=== PATIENT | male | born 1960 | race Caucasian/White ===

== ENCOUNTER 2019-12-02 04:05 | Emergency (ER) | payer OTHER ==
[~2019-12-02] VITALS: Ht 172.7 cm; Wt 102.3 kg
[~2019-12-02 04:05] MED LIST: FLUT1DIS3 IH; GUAI600T47 PO; LOSA1TAB25 PO; PRED50TA PO; TAMS0.4C2 PO; ZAFI20TA12 PO
--- NOTE | 2019-12-02 04:38 | PHYS DOC ---
Past Medical History Past Medical History: COPD, Hypertension, Other Additional Past Medical Histor: PROSTATE Past Surgical History: Appendectomy, Other Additional Past Surgical Histo: ELBOW TENDON REPAIR, LEFT WRIST REPAIR Smoking Status: Never Smoker Alcohol Use: None Drug Use: None General Adult EDM: Chief Complaint: FLANK PAIN HPI: HPI: Patient is a 59 year old male who presents with right-sided flank pain. Patient stated that about 1:00 this morning it woke him from sleep. He reports he had been doing well without any pain, fever, chills, cough or hematuria. Patient stated that he does have a history of kidney stones but is been a while since he has had 1. He does complain of nausea without vomiting, no dysuria, pyuria hematuria, no low back pain, no diarrhea, melena hematochezia. He describes the pain as sharp severe and radiating from the flank towards the right groin Review of Systems: Review of Systems: Constitutional: Denies fever or chills. [] Eyes: Denies change in visual acuity. [] HENT: Denies nasal congestion or sore throat. [] Respiratory: Denies cough or shortness of breath. [] Cardiovascular: Denies chest pain or edema. [] GI: See HPI [] : Denies dysuria. [] Musculoskeletal: Denies back pain or joint pain. [] Integument: Denies rash. [] Neurologic: Denies headache, focal weakness or sensory changes. [] Endocrine: Denies polyuria or polydipsia. [] Lymphatic: Denies swollen glands. [] Psychiatric: Denies depression or anxiety. [] Heart Score: Risk Factors: Risk Factors: DM, Current or recent (<one month) smoker, HTN, HLP, family history of CAD, obesity. Risk Scores: Score 0 - 3: 2.5% MACE over next 6 weeks - Discharge Home Score 4 - 6: 20.3% MACE over next 6 weeks - Admit for Clinical Observation Score 7 - 10: 72.7% MACE over next 6 weeks - Early Invasive Strategies Allergies: Allergies: Allergies Coded Allergies Type Severity Reaction Last Updated Verified No Known Drug Allergies 02/02/15 No Physical Exam: PE: Constitutional: Well developed, well nourished, no acute distress, non-toxic appearance. [] HENT: Normocephalic, atraumatic, bilateral external ears normal, oropharynx moist, no oral exudates, nose normal. [] Eyes: PERRLA, EOMI, conjunctiva normal, no discharge. [] Neck: Normal range of motion, no tenderness, supple, no stridor. [] Cardiovascular:Heart rate regular rhythm, no murmur [] Lungs & Thorax: Bilateral breath sounds clear to auscultation [] Abdomen: Bowel sounds normal, soft, tenderness in the right flank, no masses, no pulsatile masses, no guarding, no rebound, negative Cai sign. [] Skin: Warm, dry, no erythema, no rash. [] Back: No tenderness, no CVA tenderness. [] Extremities: No tenderness, no cyanosis, no clubbing, ROM intact, no edema. [] Neurologic: Alert and oriented X 3, normal motor function, normal sensory function, no focal deficits noted. [] Psychologic: Affect normal, judgement normal, mood normal. [] EKG: EKG: [] Radiology/Procedures: Radiology/Procedures: [] Course & Med Decision Making: Course & Med Decision Making Pertinent Labs and Imaging studies reviewed. (See chart for details) 0532-patient was seen and reevaluated. Patient is now almost pain-free. I discussed results of his testing. No evidence for for infection is identified. Patient's creatinine is slightly elevated compared to what it was 5 years ago. Given his history of hypertension I think this would reflect progression of his underlying disease. I discussed with him the reasons to return, treatment plan and need for follow-up. [] Dragon Disclaimer: Dragon Disclaimer: This electronic medical record was generated, in whole or in part, using a voice recognition dictation system. Departure Departure Impression: Primary Impression: Ureteral colic Additional Impressions: Nephrolithiasis Right flank pain Disposition: HOME, SELF-CARE Referrals: MICHAEL FREY MD (PCP) Patient Instructions: Kidney Stones Additional Instructions: Please follow-up with your primary care physician for referral to urology, please strain your urine and try to catch the stone. Scripts Oxycodone/Apap 7.5-325 (PERCOCET 7.5-325 MG TABLET ) 1 Each Tablet 1 TAB PO QIDPRN PRN for PAIN MDD 4 Tablet(s) for 5 Days, #20 TAB 0 Refills Prov: SAVANNAH COURTNEY MD 12/02/19 Ketorolac Tromethamine (KETOROLAC TROMETHAMINE) 10 Mg Tablet 1 TAB PO PRN Q6HRS, #12 TAB Please take with food Prov: SAVANNAH COURTNEY MD 12/02/19 Justicifation of Admission Dx: Justifications for Admission: Justification of Admission Dx: N/A SAVANNAH COURTNEY MD Dec 02, 2019 04:37
[2019-12-02] MEDS ORDERED: KETOROLAC 30 MG/ML VIAL. ONE (04:41)
[2019-12-02] MEDS ORDERED: KETOROLAC 15 MG/ML VIAL. IVP ONE (04:45)
[2019-12-02] MEDS ORDERED: KETOROLAC 30 MG/ML VIAL. IVP ONE (04:45)
[2019-12-02 04:51] LABS: BASO # 0.1 x10^3/uL (0.0-0.2); BASO % 1 % (0-3); EOS # 0.2 x10^3/uL (0.0-0.7); EOS % 2 % (0-3); HEMATOCRIT 47.1 % (39.0-53.0); HEMOGLOBIN 15.8 g/dL (13.0-17.5); LYMPH # 2.1 x10^3/uL (1.0-4.8); LYMPH % 24 % (24-48); MEAN CORPUSCULAR HEMOGLOBIN 29 pg (25-35); MEAN CORPUSCULAR HGB CONC 34 g/dL (31-37); MEAN CORPUSCULAR VOLUME 87 fL (79-100); MONO # 0.6 x10^3/uL (0.0-1.1); MONO % 7 % (0-9); NEUT # 5.7 x10^3/uL (1.8-7.7); NEUT % 66 % (31-73); PLATELET COUNT 292 x10^3/uL (140-400); RED BLOOD COUNT 5.41 x10^6/uL (4.30-5.70); RED CELL DISTRIBUTION WIDTH 13.1 % (11.5-14.5); WHITE BLOOD COUNT 8.6 x10^3/uL (4.0-11.0)
[2019-12-02 04:58] LABS: BILIRUBIN,URINE SMALL (NEG); CLARITY,URINE TURBID; COLOR,URINE AMBER; NITRITE,URINE NEGATIVE (NEG); PROTEIN,URINE 30 mg/dL (NEG-TRACE); UROBILINOGEN,URINE 0.2 mg/dL (0.2 mg/dL)
[2019-12-02 05:00] LABS: CALCIUM 8.1 mg/dL (8.5-10.1); CREATININE 1.5 mg/dL (0.7-1.3); GFR 47.9; POTASSIUM 3.9 mmol/L (3.5-5.1)
[2019-12-02] MEDS ORDERED: IV NORMAL SALINE 500ML BAG 500 ML IV ONE (05:00)
[2019-12-02 05:08] LABS: BACTERIA,URINE 0 /HPF (0-FEW); RBC,URINE OCC /HPF (0-2); WBC,URINE 0 /HPF (0-4)
[2019-12-02 05:09] LABS: AMORPHOUS SEDIMENT,UR PRESENT /HPF
--- NOTE | 2019-12-02 05:16 | RAD ---
CT abdomen and pelvis without contrast PQRS statement: CT scans at this facility use dose reduction including either automated exposure control, iterative reconstructions, and /or weight based radiation dosing via mA and kV modification when appropriate to reduce radiation dose to as low as reasonably achievable. HISTORY: Right flank pain. Abdomen findings: Calcified granuloma right middle lobe. Bronchial wall thickening lung bases. Right lower lobe demonstrates a 10 mm nodular density associated discoid atelectasis image 31. Liver, gallbladder, spleen, pancreas, adrenal glands unremarkable. Prominent bilateral periventricular stranding. Bilateral nephrolithiasis. There is moderate renal hydronephrosis renal pelvis diameter 1 cm and distention of the ureter with edema associated with a 2 mm distal ureteral obstructing calculus 2 cm above the bladder. Appendectomy. No obstruction or inflammatory changes in GI tract. No abdominal fluid. Pelvis findings: No bladder calculi. Prostate, rectum and bones are unremarkable. IMPRESSION: 1. Mild right renal hydronephrosis associated with a distal ureteral 2 mm obstructing calculus. 2. Bilateral nephrolithiasis. 3. Extensive bilateral perinephric edema may the sequela of renal insufficiency. 4. Appendectomy. 5. 9 mm somewhat linear right lower lobe nodular density associated with discoid atelectasis. Consider follow-up CT imaging in 3 months to document that this resolves. 6. Mild bronchial wall thickening at the lung bases may indicate bronchitis. Electronically signed by: Nino Sen MD (12/02/2019 5:13 AM) [facility]
[2019-12-02] MEDS ORDERED: KETO10TA PO (05:31)
[2019-12-02] MEDS ORDERED: OXYC1TAB19 PO (05:31)
[2019-12-02 05:42] VITALS: BP 163/83
== END 2019-12-02 05:48 | disposition home or self-care (01) ==
LOC: ER 04:05
DX: N20.0 Calculus of kidney (principal); N23 Unspecified renal colic; R11.0 Nausea; J44.9 Chronic obstructive pulmonary disease, unspecified; I10 Essential (primary) hypertension; Z90.89 Acquired absence of other organs; Z98.890 Other specified postprocedural states
CPT/HCPCS: 36415; 74176; 80048; 81001; 85025; 96361; 96374; 99284; J1885; J7040

== ENCOUNTER → 2020-04-23 | Outpatient (CLI) | payer OTHER ==
[~2020-04-23] MED LIST changes: +HYDR-2761 PO; +KETO10TA PO; +ONDA4TAB12 PO; +OXYC1TAB19 PO; +TAMS0.4C97 PO
[2020-04-23 14:49] LABS: BASO # 0.1 x10^3/uL (0.0-0.2); BASO % 1 % (0-3); EOS # 0.3 x10^3/uL (0.0-0.7); EOS % 5 % (0-3); HEMATOCRIT 39.4 % (39.0-53.0); HEMOGLOBIN 13.3 g/dL (13.0-17.5); LYMPH # 1.3 x10^3/uL (1.0-4.8); LYMPH % 19 % (24-48); MEAN CORPUSCULAR HEMOGLOBIN 30 pg (25-35); MEAN CORPUSCULAR HGB CONC 34 g/dL (31-37); MEAN CORPUSCULAR VOLUME 88 fL (79-100); MONO # 0.8 x10^3/uL (0.0-1.1); MONO % 12 % (0-9); NEUT # 4.6 x10^3/uL (1.8-7.7); NEUT % 64 % (31-73); PLATELET COUNT 253 x10^3/uL (140-400); RED BLOOD COUNT 4.48 x10^6/uL (4.30-5.70); RED CELL DISTRIBUTION WIDTH 14.6 % (11.5-14.5); WHITE BLOOD COUNT 7.2 x10^3/uL (4.0-11.0)
[2020-04-23 15:19] LABS: ALBUMIN 3.5 g/dL (3.4-5.0); ALBUMIN/GLOBULIN RATIO 1.2 (1.0-1.7); CREATININE 1.2 mg/dL (0.7-1.3); GFR 61.8; TOTAL BILIRUBIN 0.5 mg/dL (0.2-1.0); TOTAL PROTEIN 6.5 g/dL (6.4-8.2)
[2020-04-23 15:27] LABS: POTASSIUM 2.9 mmol/L (3.5-5.1)
== END ==
LOC: ONCLAB 14:40
PROVIDERS: ATTEND Internal Medicine Hematology & Oncology
DX: C83.31 Diffuse large B-cell lymphoma, lymph nodes of head, face, and neck (principal)
CPT/HCPCS: 36415; 80053; 83615; 85025

== ENCOUNTER 2020-07-20 09:12 | Emergency (ER) | payer OTHER ==
[~2020-07-20] VITALS: Ht 172.7 cm; Wt 100.0 kg
[~2020-07-20 09:12] MED LIST changes: -HYDR-2761 PO; -ONDA4TAB12 PO; -TAMS0.4C97 PO
--- NOTE | 2020-07-20 09:33 | PHYS DOC ---
Past Medical History Past Medical History: COPD, Hypertension, Kidney Stone, Other Additional Past Medical Histor: PROSTATE Past Surgical History: Appendectomy, Other Additional Past Surgical Histo: ELBOW TENDON REPAIR, LEFT WRIST REPAIR Smoking Status: Never Smoker Alcohol Use: None Drug Use: None General Adult EDM: Chief Complaint: FLANK PAIN HPI: HPI: This patient is a 60 year old male with a history of hypertension and COPD that presents with 1 day of flank pain. He says that the pain started yesterday morning and at that time it was 5 out of 10. However, by 10 PM last night the pain had disappeared. This morning at 8 AM the patient started experiencing pain again and it was worse this time. At onset, the patient was taking his child to school. He was not exerting himself at the time. He rates the pain as 6 out of 10, constant, sharp, and states that Tylenol does not help the pain. T he patient reports no provoking components. Furthermore, the patient states 6 months ago he had a kidney stone and his current symptoms feel similar to that experience. Ricardo denies any chest pain, shortness of breath, fever, chills, and dizziness. He does not follow with an urologist. Review of Systems: Review of Systems: Constitutional: Denies fever or chills Eyes: Denies redness or eye pain HENT: Denies nasal congestion or sore throat Respiratory: Denies cough or shortness of breath Cardiovascular: Denies chest pain or palpitations GI: Denies nausea, or vomiting; reports right-sided abdominal pain and flank pain. : Denies dysuria or hematuria; reports difficult urination Musculoskeletal: Denies back pain or joint pain Integument: Denies rash or skin lesions Neurologic: Denies headache, focal weakness or sensory changes Complete systems were reviewed and found to be within normal limits, except as documented in this note. Heart Score: C/O Chest Pain: N/A Allergies: Allergies: Allergies Coded Allergies Type Severity Reaction Last Updated Verified No Known Drug Allergies 02/02/15 No Physical Exam: PE: Constitutional: Well developed, well nourished, no acute distress, non-toxic appearance HENT: Normocephalic, atraumatic Eyes: PERRL, EOMI, conjunctiva normal, no discharge Neck: Normal range of motion, no tenderness, supple Lungs & Thorax: No respiratory distress, equal chest rise and fall Abdomen: Rounded abdomen, mild tenderness with deep palpation of suprapubic region. Skin: Warm, dry, no erythema, no rash Back: No midline tenderness; right CVA tenderness with River's punch Extremities: No tenderness, ROM intact, no edema Neurologic: Alert and oriented X 3, normal motor function, normal sensory function, no focal deficits noted Psychologic: Affect normal, judgment normal Current Patient Data: Vital Signs: Vital Signs Date Time Temp Pulse Resp B/P (MAP) Pulse Ox O2 Delivery O2 Flow Rate FiO2 07/20/20 09:20 98.2 100 18 200/99 (132) 97 Room Air 98.2 EKG: EKG: [] Radiology/Procedures: Radiology/Procedures: PROCEDURE: CT ABDOMEN PELVIS WO CONTRAST CT scan abdomen and pelvis without contrast 07/20/2020 CLINICAL HISTORY: Right flank pain. TECHNIQUE: Unenhanced, contiguous, 2 mm axial sections were obtained through the abdomen and pelvis. One or more of the following individualized dose reduction techniques were utilized for this study: 1. Automated exposure control. 2. Adjustment of the mA and/or kV according to patient size. 3. Use of iterative reconstruction technique. FINDINGS: Comparison study is dated 12/02/2019. Images through the lung bases demonstrate linear bands of subsegmental atelectasis involving the right lower lobe. The liver, spleen, pancreas and right adrenal gland are within normal limits. A oval-shaped low-attenuation lesion is seen involving the inferior aspect of the left adrenal gland. This measures 1.6 cm in size. This is consistent with an adrenal adenoma. It is unchanged. Nonobstructing left renal calculi are seen which measure 2 to 3 mm in size. Ther e is no evidence of obstruction of the left collecting system. Fullness of the right intrarenal collecting system is seen. The right ureter is dilated throughout its course. Within the distal right ureter at the level of the right UVJ a 4 mm distal right ureteral calculus is seen. This is causing mild obstruction of the right collecting system. Atherosclerotic calcification of the abdominal aorta is seen. The abdominal aorta tapers normally. The gallbladder is contracted. No free fluid or free air is within abdomen. There is no evidence of bowel obstruction. Images through the pelvis demonstrated the urinary bladder to be contracted. Calcifications are seen within the prostate gland. No free fluid is seen. Minimal S-shaped curvature of the thoracolumbar spine is noted. Degenerative changes are seen involving the lower thoracic and throughout the lumbar spine along with both hips. IMPRESSION: 4 mm distal right ureteral calculus is seen at the right UVJ which is causing mild obstruction of the right collecting system. Electronically signed by: Carlitos Pina MD (07/20/2020 10:06 AM) [id number] Course & Med Decision Making: Course & Med Decision Making Ricardo is a 60-year-old male who presents with roughly 1 day of right flank pain. He has a history of 1 kidney stone, hypertension, and COPD. The patient describes his pain as 6 out of 10, sharp, and stabbing. Given his history of kidney stone, and his presentation, a CT scan was done to determine if he had another stone. Imaging showed that he had a 4.9mm calcification at his UVJ. As this is under 5mm, the patient was prescribed Flomax, and is expected to be able to pass the stone on his own. His pain was controlled during his visit in the emergency room, and his vital signs have been stable throughout his visit. Patient was instructed to return to the emergency room if he continued to experience severe pain, or increasing pain, or any signs of infection such as fever or chills. Furthermore, he was instructed to return to the emergency room if he became unable to urinate. Patient stable for discharge with outpatient follow-up with PCP. Discussed findings and plan with patient, who acknowledges understanding and agreement. Dragon Disclaimer: Dragon Disclaimer: This electronic medical record was generated, in whole or in part, using a voice recognition dictation system. Departure Departure Impression: Primary Impression: Kidney stone Disposition: 01 DC HOME SELF CARE/HOMELESS Condition: STABLE Referrals: MICHAEL FREY MD (PCP) Patient Instructions: Diet for Kidney Stones, Kidney Stones, [id number] Additional Instructions: Increase fluid hydration. May also take over the counter Ibuprofen for pain or discomfort. Scripts Hydrocodone Bit/Acetaminophen (HYDROCODONE-APAP 5-325 ) 1 Tab Tablet 0.5-1 TAB PO PRN Q6HRS PRN for PAIN, #10 TAB 0 Refills Prov: CALIXTO LOMELI DO 07/20/20 Tamsulosin Hcl (FLOMAX) 0.4 Mg Cap.er.24h 1 CAP PO DAILY for 7 Days, #7 CAP Prov: CALIXTO LOMELI DO 07/20/20 Ondansetron (ONDANSETRON ODT) 4 Mg Tab.rapdis 1 TAB PO PRN Q6-8HRS PRN for NAUSEA, #16 TAB Prov: CALIXTO LOMELI DO 07/20/20 CALIXTO LOMELI DO Jul 20, 2020 09:33
[2020-07-20] MEDS ORDERED: IV NORMAL SALINE 1000ML BAG 1,000 ML IV ONE (09:45)
[2020-07-20] MEDS ORDERED: KETOROLAC 15 MG/ML VIAL. IVP ONE (09:45)
[2020-07-20] MEDS ORDERED: METOCLOPRAMIDE HCL 10 MG/2 ML VIAL. IVP ONE (09:45)
[2020-07-20] MEDS ORDERED: fentaNYL PF VIAL 100 MCG/2 ML VIAL IV ONE (09:45)
[2020-07-20] MEDS ORDERED: IV NORMAL SALINE 1000ML BAG 1,000 ML IV SCH (09:45)
[2020-07-20 09:47] LABS: BASO # 0.1 x10^3/uL (0.0-0.2); BASO % 1 % (0-3); EOS # 0.2 x10^3/uL (0.0-0.7); EOS % 2 % (0-3); HEMATOCRIT 46.8 % (39.0-53.0); HEMOGLOBIN 15.8 g/dL (13.0-17.5); LYMPH # 1.5 x10^3/uL (1.0-4.8); LYMPH % 18 % (24-48); MEAN CORPUSCULAR HEMOGLOBIN 29 pg (25-35); MEAN CORPUSCULAR HGB CONC 34 g/dL (31-37); MEAN CORPUSCULAR VOLUME 86 fL (79-100); MONO # 0.7 x10^3/uL (0.0-1.1); MONO % 9 % (0-9); NEUT # 5.7 x10^3/uL (1.8-7.7); NEUT % 70 % (31-73); PLATELET COUNT 288 x10^3/uL (140-400); RED BLOOD COUNT 5.43 x10^6/uL (4.30-5.70); RED CELL DISTRIBUTION WIDTH 13.1 % (11.5-14.5); WHITE BLOOD COUNT 8.2 x10^3/uL (4.0-11.0)
[2020-07-20 09:49] LABS: BILIRUBIN,URINE NEGATIVE (NEG); CLARITY,URINE CLEAR; COLOR,URINE YELLOW; NITRITE,URINE NEGATIVE (NEG); PROTEIN,URINE NEGATIVE (NEG-TRACE); UROBILINOGEN,URINE 0.2 mg/dL (0.2 mg/dL)
[2020-07-20 09:59] LABS: BACTERIA,URINE 0 /HPF (0-FEW); RBC,URINE 0 /HPF (0-2); WBC,URINE 0 /HPF (0-4)
[2020-07-20 10:04] LABS: CALCIUM 8.6 mg/dL (8.5-10.1); CREATININE 1.3 mg/dL (0.7-1.3); GFR 56.3; POTASSIUM 3.5 mmol/L (3.5-5.1)
--- NOTE | 2020-07-20 10:09 | RAD ---
CT scan abdomen and pelvis without contrast 07/20/2020 CLINICAL HISTORY: Right flank pain. TECHNIQUE: Unenhanced, contiguous, 2 mm axial sections were obtained through the abdomen and pelvis. One or more of the following individualized dose reduction techniques were utilized for this study: 1. Automated exposure control. 2. Adjustment of the mA and/or kV according to patient size. 3. Use of iterative reconstruction technique. FINDINGS: Comparison study is dated 12/02/2019. Images through the lung bases demonstrate linear bands of subsegmental atelectasis involving the righ t lower lobe. The liver, spleen, pancreas and right adrenal gland are within normal limits. A oval-shaped low-atten uation lesion is seen involving the inferior aspect of the left adrenal gland. This measures 1.6 cm i n size. This is consistent with an adrenal adenoma. It is unchanged. Nonobstructing left renal calculi are seen which measure 2 to 3 mm in size. There is no evidence of o bstruction of the left collecting system. Fullness of the right intrarenal collecting system is seen. The right ureter is dilated throughout its course. Within the distal right ureter at the level of th e right UVJ a 4 mm distal right ureteral calculus is seen. This is causing mild obstruction of the ri ght collecting system. Atherosclerotic calcification of the abdominal aorta is seen. The abdominal aorta tapers normally. Th e gallbladder is contracted. No free fluid or free air is within abdomen. There is no evidence of bow el obstruction. Images through the pelvis demonstrated the urinary bladder to be contracted. Calcifications are seen within the prostate gland. No free fluid is seen. Minimal S-shaped curvature of the thoracolumbar spi ne is noted. Degenerative changes are seen involving the lower thoracic and throughout the lumbar spi ne along with both hips. IMPRESSION: 4 mm distal right ureteral calculus is seen at the right UVJ which is causing mild obstru ction of the right collecting system. Electronically signed by: Carlitos Pina MD (07/20/2020 10:06 AM) [id number]
[2020-07-20 10:10] LABS: ALBUMIN 3.7 g/dL (3.4-5.0); ALBUMIN/GLOBULIN RATIO 1.1 (1.0-1.7); TOTAL BILIRUBIN 0.5 mg/dL (0.2-1.0)
[2020-07-20] MEDS ORDERED: TAMSULOSIN 0.4 MG CAP.ER.24H. PO ONE (10:45)
[2020-07-20] MEDS ORDERED: TAMS0.4C97 PO (11:06)
[2020-07-20] MEDS ORDERED: HYDR-2761 PO (11:06)
[2020-07-20] MEDS ORDERED: ONDA4TAB12 PO (11:06)
[2020-07-20 12:00] VITALS: BP 122/66
== END 2020-07-20 12:05 | disposition home or self-care (01) ==
LOC: ER 09:12
DX: N20.0 Calculus of kidney (principal); R10.9 Unspecified abdominal pain; J44.9 Chronic obstructive pulmonary disease, unspecified; I10 Essential (primary) hypertension; Z87.442 Personal history of urinary calculi; Z90.89 Acquired absence of other organs; Z98.890 Other specified postprocedural states
CPT/HCPCS: 36415; 74176; 80053; 81001; 83690; 83735; 85025; 96361; 96374; 96375; 99284; J1885; J2765; J3010; J7030

== ENCOUNTER → 2020-07-23 | Outpatient (CLI) | payer OTHER ==
[2020-07-20 12:00] VITALS: BP 122/66
[~2020-07-23] MED LIST changes: +HYDR-2761 PO; +ONDA4TAB12 PO; +TAMS0.4C97 PO
[2020-07-23 09:29] LABS: BASO # 0.1 x10^3/uL (0.0-0.2); BASO % 1 % (0-3); EOS # 0.2 x10^3/uL (0.0-0.7); EOS % 3 % (0-3); HEMATOCRIT 44.3 % (39.0-53.0); LYMPH # 1.3 x10^3/uL (1.0-4.8); LYMPH % 20 % (24-48); MEAN CORPUSCULAR HEMOGLOBIN 29 pg (25-35); MEAN CORPUSCULAR HGB CONC 34 g/dL (31-37); MEAN CORPUSCULAR VOLUME 86 fL (79-100); MONO # 0.5 x10^3/uL (0.0-1.1); MONO % 7 % (0-9); NEUT # 4.6 x10^3/uL (1.8-7.7); NEUT % 70 % (31-73); PLATELET COUNT 272 x10^3/uL (140-400); RED BLOOD COUNT 5.18 x10^6/uL (4.30-5.70); RED CELL DISTRIBUTION WIDTH 12.9 % (11.5-14.5); WHITE BLOOD COUNT 6.6 x10^3/uL (4.0-11.0)
[2020-07-23 09:45] LABS: CALCIUM 8.7 mg/dL (8.5-10.1); CREATININE 1.1 mg/dL (0.7-1.3); GFR 68.3; POTASSIUM 3.4 mmol/L (3.5-5.1)
[2020-07-23 09:51] LABS: ALBUMIN 3.6 g/dL (3.4-5.0); ALBUMIN/GLOBULIN RATIO 1.1 (1.0-1.7); TOTAL BILIRUBIN 0.6 mg/dL (0.2-1.0); TOTAL PROTEIN 6.8 g/dL (6.4-8.2)
== END ==
LOC: ONCLAB 09:01
PROVIDERS: ATTEND Internal Medicine Hematology & Oncology
DX: C83.31 Diffuse large B-cell lymphoma, lymph nodes of head, face, and neck (principal)
CPT/HCPCS: 36415; 80053; 83615; 85025

== ENCOUNTER → 2020-10-11 | Outpatient (CLI) | payer OTHER ==
[2020-10-11 15:04] LABS: BASO # 0.1 x10^3/uL (0.0-0.2); BASO % 1 % (0-3); EOS # 0.3 x10^3/uL (0.0-0.7); EOS % 3 % (0-3); HEMATOCRIT 46.2 % (39.0-53.0); HEMOGLOBIN 15.4 g/dL (13.0-17.5); LYMPH # 1.7 x10^3/uL (1.0-4.8); LYMPH % 20 % (24-48); MEAN CORPUSCULAR HEMOGLOBIN 30 pg (25-35); MEAN CORPUSCULAR HGB CONC 33 g/dL (31-37); MEAN CORPUSCULAR VOLUME 89 fL (79-100); MONO # 0.7 x10^3/uL (0.0-1.1); MONO % 8 % (0-9); NEUT # 5.9 x10^3/uL (1.8-7.7); NEUT % 68 % (31-73); PLATELET COUNT 318 x10^3/uL (140-400); RED CELL DISTRIBUTION WIDTH 13.5 % (11.5-14.5); WHITE BLOOD COUNT 8.7 x10^3/uL (4.0-11.0)
[2020-10-11 15:20] LABS: CALCIUM 8.8 mg/dL (8.5-10.1); CREATININE 1.3 mg/dL (0.7-1.3); GFR 56.3; POTASSIUM 3.6 mmol/L (3.5-5.1)
[2020-10-11 15:26] LABS: ALBUMIN 4.1 g/dL (3.4-5.0); ALBUMIN/GLOBULIN RATIO 1.5 (1.0-1.7); TOTAL BILIRUBIN 0.4 mg/dL (0.2-1.0); TOTAL PROTEIN 6.9 g/dL (6.4-8.2)
== END ==
LOC: ONCLAB 14:22
PROVIDERS: ATTEND Internal Medicine Hematology & Oncology
DX: C83.31 Diffuse large B-cell lymphoma, lymph nodes of head, face, and neck (principal)
CPT/HCPCS: 36415; 80053; 83615; 85025

== ENCOUNTER 2020-12-09 06:49 | Emergency (ER) | payer OTHER ==
[~2020-12-09] VITALS: Ht 172.7 cm; Wt 102.3 kg
[2020-12-09] MEDS ORDERED: MORPHINE SULFATE 10 MG/ML VIAL. IV ONE ×2 (07:30→08:30)
[2020-12-09] MEDS ORDERED: IV NORMAL SALINE 1000ML BAG 1,000 ML IV ONE (07:30)
--- NOTE | 2020-12-09 07:30 | PHYS DOC ---
Past Medical History Past Medical History: COPD, Hypertension, Kidney Stone, Other Additional Past Medical Histor: PRE-DM Past Surgical History: Appendectomy Additional Past Surgical Histo: REMOVAL OF LYMPHOMA Smoking Status: Never Smoker Alcohol Use: None Drug Use: None General Adult EDM: Chief Complaint: FLANK PAIN HPI: HPI: 60-year-old male with a history of nephrolithiasis presents to the emergency department complaining of left-sided flank pain that started this morning, sharp, radiating down his left side. He also states that he is having difficulty with urination this morning. He reports his symptoms are very similar to a previous kidney stone that he had in the past on the right side. He has never had symptoms in the left side before. The patient denies nausea, vomiting, fever, chills, chest pain, shortness of breath,cough, recent trauma, or any other complaints. Review of Systems: Review of Systems: Constitutional: Denies fever or chills. Eyes: Denies change in vision, pain. HENT: Denies congestion or sore throat. Respiratory: Denies cough or shortness of breath. Cardiovascular: Denies chest pain or edema. GI: Denies abdominal pain, nausea. Admits to left-sided flank pain : Has difficulty with urination, denies hematuria. Musculoskeletal: Denies extremity pain, or trauma. Skin: Denies rash, skin change. Neurologic: Denies headache, focal weakness. Psychiatric: Denies depression or anxiety. All other systems reviewed as negative except for what was mentioned in the HPI. Heart Score: C/O Chest Pain: No Allergies: Allergies: Allergies Coded Allergies Type Severity Reaction Last Updated Verified No Known Drug Allergies 02/02/15 No Physical Exam: PE: Constitutional: Mild distress secondary to pain, non-toxic appearance. HENT: Atraumatic, bilateral external ears normal, nose normal. Eyes: PERRLA, EOMI, conjunctiva normal, no discharge. Neck: Normal range of motion, supple, no stridor. Cardiovascular: Heart rate regular rhythm. 2+ radial pulses Lungs & Thorax: No respiratory distress, symmetrical expansion. Abdomen: Soft, no tenderness left-sided CVA tenderness Skin: Warm, dry. Extremities: No tenderness, no cyanosis, ROM intact, no edema. Neurologic: Alert and oriented X 3, normal motor function, normal sensory function, no focal deficits noted. Non ataxic gait. GCS 15. Psychologic: Affect normal, judgment normal, mood normal. Current Patient Data: Labs: Laboratory Tests Test 12/09/20 07:26 White Blood Count 9.0 x10^3/uL (4.0-11.0) Red Blood Count 5.33 x10^6/uL (4.30-5.70) Hemoglobin 15.8 g/dL (13.0-17.5) Hematocrit 46.5 % (39.0-53.0) Mean Corpuscular Volume 87 fL (79-100) Mean Corpuscular Hemoglobin 30 pg (25-35) Mean Corpuscular Hemoglobin Concent 34 g/dL (31-37) Red Cell Distribution Width 13.0 % (11.5-14.5) Platelet Count 274 x10^3/uL (140-400) Neutrophils (%) (Auto) 69 % (31-73) Lymphocytes (%) (Auto) 20 % (24-48) Monocytes (%) (Auto) 7 % (0-9) Eosinophils (%) (Auto) 3 % (0-3) Basophils (%) (Auto) 1 % (0-3) Neutrophils # (Auto) 6.2 x10^3/uL (1.8-7.7) Lymphocytes # (Auto) 1.8 x10^3/uL (1.0-4.8) Monocytes # (Auto) 0.6 x10^3/uL (0.0-1.1) Eosinophils # (Auto) 0.3 x10^3/uL (0.0-0.7) Basophils # (Auto) 0.1 x10^3/uL (0.0-0.2) Urine Collection Type Unknown Urine Color Yellow Urine Clarity Clear Urine pH 5.5 (<5.0-8.0) Urine Specific [place] 1.025 (1.000-1.030) Urine Protein Negative mg/dL (NEG-TRACE) Urine Glucose (UA) Negative mg/dL (NEG) Urine Ketones (Stick) Negative mg/dL (NEG) Urine Blood Large (NEG) Urine Nitrite Negative (NEG) Urine Bilirubin Small (NEG) Urine Urobilinogen Dipstick 1.0 mg/dL (0.2 mg/dL) Urine Leukocyte Esterase Negative (NEG) Urine RBC 6-10 /HPF (0-2) Urine WBC Occ /HPF (0-4) Urine Squamous Epithelial Cells Occ /LPF Urine Bacteria Few /HPF (0-FEW) Urine Mucus Marked /LPF Sodium Level 140 mmol/L (136-145) Potassium Level 3.9 mmol/L (3.5-5.1) Chloride Level 103 mmol/L (98-107) Carbon Dioxide Level 29 mmol/L (21-32) Anion Gap 8 (6-14) Blood Urea Nitrogen 20 mg/dL (8-26) Creatinine 1.5 mg/dL (0.7-1.3) Estimated GFR (Cockcroft-Gault) 47.7 Glucose Level 145 mg/dL (70-99) Calcium Level 8.8 mg/dL (8.5-10.1) Vital Signs: Vital Signs Date Time Temp Pulse Resp B/P (MAP) Pulse Ox O2 Delivery O2 Flow Rate FiO2 12/09/20 07:05 98.3 103 20 188/116 95 Room Air 98.3 Radiology/Procedures: Radiology/Procedures: XR CHEST 1V CLINICAL INDICATIONS: left flank pain COMPARISON: February 02, 2015. Findings: Calcified granuloma medial right lung base is again evident. No acute lung infiltrate or pleural effusion or pulmonary edema or lung mass or pneumothorax is seen. The heart size, pulmonary vasculature, mediastinum and both abrahan are unremarkable. IMPRESSION: No acute radiographic abnormality is seen. Electronically signed by: Tucker Zhao MD (12/09/2020 8:12 AM) Exam: CT abdomen/pelvis without intravenous contrast Indication: Left flank pain starting this morning, history of kidney stones Comparison: CT abdomen pelvis 07/20/2020 Technique: Helical CT imaging performed of the abdomen and pelvis without the use of intravenous contrast. Sagittal and coronal reformats were obtained. One or more of the following individualized dose reduction techniques were utilized for this examination: 1. Automated exposure control 2. Adjustment of the mA and/or kV according to patient size 3. Use of iterative reconstruction technique. Findings: Inherently limited evaluation without intravenous contrast. Lower chest: 9 mm nodular bandlike opacity in the right lung base is unchanged from 2020 and likely atelectasis. The heart is normal size. Liver: The liver is mildly enlarged measuring 20 cm in length and diffusely low in attenuation. Gallbladder/Biliary Tree: Normal. Pancreas: Normal. Spleen: Normal. Adrenal Glands: Normal. Kidneys/Ureters/Bladder: Right ureterolithiasis and hydronephrosis has resolved. There is a new 3 mm calculus in the distal left ureter near the UVJ resulting in mild left hydronephrosis. Additional 2 mm calculus in the mid left kidney. Bladder is decompressed. Reproductive Organs: Prostate gland is unremarkable. Stomach, small bowel, and colon: Stomach, small bowel and colon are normal. There are surgical changes of appendectomy. Vasculature: Abdominal aorta is normal in caliber with mild scattered calcifications. Lymph Nodes: No lymphadenopathy. Peritoneum and retroperitoneum: No free fluid or free air. Bones: No acute osseous abnormality. Mild degenerative disc disease in the lumbar spine. Impression: 1. Mild left hydronephrosis due to a 3 mm calculus in the distal left ureter. 2. Interval resolution of right ureterolithiasis and hydronephrosis. 3. Left nephrolithiasis. 4. Mild hepatomegaly and hepatic steatosis. Electronically signed by: Deborah Martinez MD (12/09/2020 7:51 AM) Course & Med Decision Making: Course & Med Decision Making CT scan shows hydronephrosis with 3 mm stone. He was given morphine x2 in the emergency department with good pain relief. He states that he feels comfortable to go home. We will treat him for UTI with antibiotics. Patient otherwise has no further complaints. He has pain medicine, tamsulosin at home from his previous kidney stone. Return precautions were discussed with the patient for any increased pain, inability to eat or drink, vomiting, fever or chills or any further symptom he would deem appropriate for reevaluation. My Orders - GIAN ROCHA DO Procedure Category Date Status Time Cbc W [facility] LAB 12/09/20 Complete 07:26 Ct Abdomen Pelvis Wo CT 12/09/20 Resulted Contrast 07:26 Basic Metabolic Panel LAB 12/09/20 Complete 07:26 Morphine Sulfate PHA 12/09/20 Complete (Morphine Sulfate) 07:30 Iv Normal Saline PHA 12/09/20 Complete 1000ml Bag (Iv Sodium 07:30 Chest Ap Only RAD 12/09/20 Resulted 07:26 Ua, Cult If Indicated LAB 12/09/20 Complete 07:26 Morphine Sulfate PHA 12/09/20 Complete (Morphine Sulfate) 08:30 Ceftriaxone Iv Push PHA 12/09/20 Complete (Rocephin) 08:30 Departure Departure Impression: Primary Impression: Left ureteral stone Disposition: 01 HOME / SELF CARE / HOMELESS Condition: STABLE Referrals: MICHAEL FREY MD (PCP) Patient Instructions: Kidney Stones, [id number] Additional Instructions: You were seen in the emergency department for a kidney stone that will hopefully pass. Please use the oxycodone as needed and tamsulosin as prescribed for your stone. We have also given you nausea medication if you should need it. You should check your urine for the stone. Kidney stones can pass in a few days or may take a few weeks depending on many factors. Your ultrasound did not show any signs that your stone is obstructing. You should return to the emergency department if you develop worsening pain, fever, continued bloody urine, lightheadedness, shortness of breath, chest pain, or any other new or concerning symptoms, or difficulty eating or drinking due to nausea. Do not drive while taking the pain medicine and please take as directed. Please follow up with a primary care doctor or urologist in a few days if you are not feeling better. Scripts Cephalexin (CEPHALEXIN) 500 Mg Tablet 1 TAB PO QID for 7 Days, #28 TAB Prov: GIAN ROCHA DO 12/09/20 GIAN ROCHA DO Dec 09, 2020 07:30
[2020-12-09 07:36] LABS: BILIRUBIN,URINE SMALL (NEG); CLARITY,URINE CLEAR; COLOR,URINE YELLOW; NITRITE,URINE NEGATIVE (NEG); PH,URINE 5.5 (<5.0-8.0); PROTEIN,URINE NEGATIVE (NEG-TRACE)
[2020-12-09 07:44] LABS: BASO # 0.1 x10^3/uL (0.0-0.2); BASO % 1 % (0-3); EOS # 0.3 x10^3/uL (0.0-0.7); EOS % 3 % (0-3); HEMATOCRIT 46.5 % (39.0-53.0); HEMOGLOBIN 15.8 g/dL (13.0-17.5); LYMPH # 1.8 x10^3/uL (1.0-4.8); LYMPH % 20 % (24-48); MEAN CORPUSCULAR HEMOGLOBIN 30 pg (25-35); MEAN CORPUSCULAR HGB CONC 34 g/dL (31-37); MEAN CORPUSCULAR VOLUME 87 fL (79-100); MONO # 0.6 x10^3/uL (0.0-1.1); MONO % 7 % (0-9); NEUT # 6.2 x10^3/uL (1.8-7.7); NEUT % 69 % (31-73); PLATELET COUNT 274 x10^3/uL (140-400); RED BLOOD COUNT 5.33 x10^6/uL (4.30-5.70)
[2020-12-09 07:49] LABS: BACTERIA,URINE FEW /HPF (0-FEW); WBC,URINE OCC /HPF (0-4)
[2020-12-09 07:52] LABS: CALCIUM 8.8 mg/dL (8.5-10.1); CREATININE 1.5 mg/dL (0.7-1.3); GFR 47.7; POTASSIUM 3.9 mmol/L (3.5-5.1)
--- NOTE | 2020-12-09 07:53 | RAD ---
Exam: CT abdomen/pelvis without intravenous contrast Indication: Left flank pain starting this morning, history of kidney stones Comparison: CT abdomen pelvis 07/20/2020 Technique: Helical CT imaging performed of the abdomen and pelvis without the use of intravenous cont rast. Sagittal and coronal reformats were obtained. One or more of the following individualized dose reduction techniques were utilized for this examinat ion: 1. Automated exposure control 2. Adjustment of the mA and/or kV according to patient size 3. Use of iterative reconstruction technique. Findings: Inherently limited evaluation without intravenous contrast. Lower chest: 9 mm nodular bandlike opacity in the right lung base is unchanged from 2020 and likely a telectasis. The heart is normal size. Liver: The liver is mildly enlarged measuring 20 cm in length and diffusely low in attenuation. Gallbladder/Biliary Tree: Normal. Pancreas: Normal. Spleen: Normal. Adrenal Glands: Normal. Kidneys/Ureters/Bladder: Right ureterolithiasis and hydronephrosis has resolved. There is a new 3 mm calculus in the distal left ureter near the UVJ resulting in mild left hydronephrosis. Additional 2 m m calculus in the mid left kidney. Bladder is decompressed. Reproductive Organs: Prostate gland is unremarkable. Stomach, small bowel, and colon: Stomach, small bowel and colon are normal. There are surgical change s of appendectomy. Vasculature: Abdominal aorta is normal in caliber with mild scattered calcifications. Lymph Nodes: No lymphadenopathy. Peritoneum and retroperitoneum: No free fluid or free air. Bones: No acute osseous abnormality. Mild degenerative disc disease in the lumbar spine. Impression: 1. Mild left hydronephrosis due to a 3 mm calculus in the distal left ureter. 2. Interval resolution of right ureterolithiasis and hydronephrosis. 3. Left nephrolithiasis. 4. Mild hepatomegaly and hepatic steatosis. Electronically signed by: Deborah Martinez MD (12/09/2020 7:51 AM) [id number]
--- NOTE | 2020-12-09 08:15 | RAD ---
XR CHEST 1V CLINICAL INDICATIONS: left flank pain COMPARISON: February 02, 2015. Findings: Calcified granuloma medial right lung base is again evident. No acute lung infiltrate or pl eural effusion or pulmonary edema or lung mass or pneumothorax is seen. The heart size, pulmonary va sculature, mediastinum and both abrahan are unremarkable. IMPRESSION: No acute radiographic abnormality is seen. Electronically signed by: Tucker Zhao MD (12/09/2020 8:12 AM) [id number]
[2020-12-09] MEDS ORDERED: cefTRIAXone IV Push 1 GM VIAL. IVP ONE (08:30)
[2020-12-09] MEDS ORDERED: CEPH500T PO (09:52)
[2020-12-09 10:13] VITALS: BP 128/68
== END 2020-12-09 10:13 | disposition home or self-care (01) ==
LOC: ER 06:49
DX: N13.2 Hydronephrosis with renal and ureteral calculous obstruction (principal); J44.9 Chronic obstructive pulmonary disease, unspecified; I10 Essential (primary) hypertension
CPT/HCPCS: 36415; 71045; 74176; 80048; 81001; 85025; 96361; 96374; 96375; 96376; 99284; J0696; J2270; J7030

== ENCOUNTER → 2021-01-09 | Outpatient (CLI) | payer OTHER ==
[~2021-01-09] MED LIST changes: +CEPH500T PO
[2021-01-09 14:17] LABS: BASO # 0.1 x10^3/uL (0.0-0.2); BASO % 1 % (0-3); EOS # 0.3 x10^3/uL (0.0-0.7); EOS % 3 % (0-3); HEMATOCRIT 44.2 % (39.0-53.0); HEMOGLOBIN 15.2 g/dL (13.0-17.5); LYMPH # 1.8 x10^3/uL (1.0-4.8); LYMPH % 20 % (24-48); MEAN CORPUSCULAR HEMOGLOBIN 30 pg (25-35); MEAN CORPUSCULAR HGB CONC 34 g/dL (31-37); MEAN CORPUSCULAR VOLUME 87 fL (79-100); MONO # 0.8 x10^3/uL (0.0-1.1); MONO % 9 % (0-9); NEUT # 6.1 x10^3/uL (1.8-7.7); NEUT % 68 % (31-73); PLATELET COUNT 236 x10^3/uL (140-400); RED BLOOD COUNT 5.06 x10^6/uL (4.30-5.70); RED CELL DISTRIBUTION WIDTH 13.1 % (11.5-14.5); WHITE BLOOD COUNT 9.1 x10^3/uL (4.0-11.0)
[2021-01-09 14:39] LABS: CALCIUM 8.9 mg/dL (8.5-10.1); CREATININE 1.2 mg/dL (0.7-1.3); GFR 61.8; POTASSIUM 3.5 mmol/L (3.5-5.1)
[2021-01-09 14:44] LABS: ALBUMIN 3.6 g/dL (3.4-5.0); ALBUMIN/GLOBULIN RATIO 1.1 (1.0-1.7); TOTAL BILIRUBIN 0.4 mg/dL (0.2-1.0); TOTAL PROTEIN 6.8 g/dL (6.4-8.2)
== END ==
LOC: ONCLAB 13:33
PROVIDERS: ATTEND Internal Medicine Hematology & Oncology
DX: C83.31 Diffuse large B-cell lymphoma, lymph nodes of head, face, and neck (principal)
CPT/HCPCS: 36415; 80053; 83615; 85025

== ENCOUNTER → 2021-01-09 | Outpatient (CLI) | payer OTHER ==
[2021-01-09 14:45] LABS: ALBUMIN 3.7 g/dL (3.4-5.0); ALBUMIN/GLOBULIN RATIO 1.2 (1.0-1.7); CALCIUM 8.7 mg/dL (8.5-10.1); CREATININE 1.2 mg/dL (0.7-1.3); GFR 61.8; POTASSIUM 3.5 mmol/L (3.5-5.1); TOTAL BILIRUBIN 0.5 mg/dL (0.2-1.0); TOTAL PROTEIN 6.8 g/dL (6.4-8.2); URIC ACID 3.7 mg/dL (3.5-7.2)
== END ==
LOC: LAB 13:29
PROVIDERS: ATTEND Urology
DX: N20.2 Calculus of kidney with calculus of ureter (principal)
CPT/HCPCS: 36415; 80053; 84550

== ENCOUNTER → 2021-04-14 | Outpatient (CLI) | payer OTHER ==
[2021-04-14 13:24] LABS: BASO # 0.1 x10^3/uL (0.0-0.2); BASO % 1 % (0-3); EOS # 0.2 x10^3/uL (0.0-0.7); EOS % 3 % (0-3); HEMATOCRIT 45.9 % (39.0-53.0); HEMOGLOBIN 15.4 g/dL (13.0-17.5); LYMPH # 1.8 x10^3/uL (1.0-4.8); LYMPH % 23 % (24-48); MEAN CORPUSCULAR HEMOGLOBIN 30 pg (25-35); MEAN CORPUSCULAR HGB CONC 34 g/dL (31-37); MEAN CORPUSCULAR VOLUME 88 fL (79-100); MONO # 0.7 x10^3/uL (0.0-1.1); MONO % 9 % (0-9); NEUT % 64 % (31-73); PLATELET COUNT 278 x10^3/uL (140-400); RED BLOOD COUNT 5.22 x10^6/uL (4.30-5.70); RED CELL DISTRIBUTION WIDTH 12.9 % (11.5-14.5); WHITE BLOOD COUNT 7.8 x10^3/uL (4.0-11.0)
[2021-04-14 13:38] LABS: CALCIUM 8.3 mg/dL (8.5-10.1); CREATININE 1.1 mg/dL (0.7-1.3); GFR 68.1; POTASSIUM 3.3 mmol/L (3.5-5.1)
[2021-04-14 13:44] LABS: ALBUMIN 3.7 g/dL (3.4-5.0); ALBUMIN/GLOBULIN RATIO 1.1 (1.0-1.7); TOTAL BILIRUBIN 0.5 mg/dL (0.2-1.0); TOTAL PROTEIN 7.2 g/dL (6.4-8.2)
== END ==
LOC: ONCLAB 12:59
PROVIDERS: ATTEND Internal Medicine Hematology & Oncology
DX: C83.31 Diffuse large B-cell lymphoma, lymph nodes of head, face, and neck (principal)
CPT/HCPCS: 36415; 80053; 83615; 85025

== ENCOUNTER → 2021-07-14 | Outpatient (CLI) | payer OTHER ==
[2021-07-14 08:30] LABS: BASO % 1 % (0-3); EOS # 0.3 x10^3/uL (0.0-0.7); EOS % 4 % (0-3); HEMATOCRIT 48.4 % (39.0-53.0); HEMOGLOBIN 15.7 g/dL (13.0-17.5); LYMPH # 2.3 x10^3/uL (1.0-4.8); LYMPH % 32 % (24-48); MEAN CORPUSCULAR HEMOGLOBIN 29 pg (25-35); MEAN CORPUSCULAR HGB CONC 33 g/dL (31-37); MEAN CORPUSCULAR VOLUME 88 fL (79-100); MONO # 0.6 x10^3/uL (0.0-1.1); MONO % 8 % (0-9); NEUT # 3.9 x10^3/uL (1.8-7.7); NEUT % 56 % (31-73); PLATELET COUNT 251 x10^3/uL (140-400); RED CELL DISTRIBUTION WIDTH 13.1 % (11.5-14.5)
[2021-07-14 08:49] LABS: CALCIUM 8.7 mg/dL (8.5-10.1); CREATININE 1.2 mg/dL (0.7-1.3); GFR 61.6; POTASSIUM 3.8 mmol/L (3.5-5.1)
[2021-07-14 08:56] LABS: ALBUMIN 3.7 g/dL (3.4-5.0); ALBUMIN/GLOBULIN RATIO 1.2 (1.0-1.7); TOTAL BILIRUBIN 0.4 mg/dL (0.2-1.0); TOTAL PROTEIN 6.9 g/dL (6.4-8.2)
== END ==
LOC: ONCLAB 08:00
PROVIDERS: ATTEND Internal Medicine Hematology & Oncology
DX: C83.31 Diffuse large B-cell lymphoma, lymph nodes of head, face, and neck (principal)
CPT/HCPCS: 36415; 80053; 83615; 85025